=== PATIENT | male | born 1950 | race Caucasian/White ===

== ENCOUNTER 2020-10-30 06:26 | Day surgery (SDC) | payer MEDICARE ==
[2020-10-29 10:27] VITALS: BMI 25.7
== END 2020-10-30 14:25 | disposition home or self-care (01) ==
LOC: SDC 06:26
PROVIDERS: ATTEND Orthopaedic Surgery
PROC: 0QSH04Z Reposition Left Tibia with Internal Fixation Device, Open Approach (ICD-10-PCS; principal; 2020-10-30)
PROC: 3E0T3BZ Introduction of Anesthetic Agent into Peripheral Nerves and Plexi, Percutaneous Approach (ICD-10-PCS; 2020-10-30)
DX: S82.142A Displaced bicondylar fracture of left tibia, initial encounter for closed fracture (principal); I10 Essential (primary) hypertension; M19.90 Unspecified osteoarthritis, unspecified site; E78.5 Hyperlipidemia, unspecified; Z79.899 Other long term (current) drug therapy; Z88.2 Allergy status to sulfonamides; W22.8XXA Striking against or struck by other objects, initial encounter
CPT/HCPCS: 27535; 64446; 73562; 76000; A4306; C1713; J0690; J1100; J1885; J2250; J2405; J2704; J2795; J3010